=== PATIENT | male | born 1945 | race Caucasian/White ===

== ENCOUNTER → 2018-04-10 | Outpatient (CLI) | payer MEDICARE, BC ==
[2018-04-13 00:08] LABS: ACETYLCHOLINE RCPTOR BLOCK AB 24 % (0-25)
[2018-04-13 00:08] LABS: ACETYLCHOLINE RCPTOR BINDING A < 0.03 nmol/L (0.00-0.24)
== END ==
LOC: M LAB 09:12
DX: H53.2 Diplopia (principal)
CPT/HCPCS: 36415

== ENCOUNTER 2018-05-16 06:55 | Day surgery (SDC) | payer MEDICARE, BC ==
[2018-05-16] MEDS: PROPARACAINE 0.5% OPHTH SOL 15ML OS (07:00)
[2018-05-16] MEDS: OFLOXACIN 0.3 % (OCUFLOX) OPTH SOL 5ML OS (07:00)
[2018-05-16] MEDS: TROPICAMIDE 1% OPHTH SOLN 2ML OS (07:00)
[2018-05-16] MEDS: PHENYLEPHRINE 2.5% OPHTH SOL 2ML OS (07:00)
[2018-05-16] MEDS ORDERED: MIDAZOLAM INJ 2 MG/2 ML VIAL (J2250) As Ordered (07:32)
[2018-05-16] MEDS ORDERED: fentaNYL 100 MCG/2 ML INJECTION (J3010) As Ordered (07:33)
[2018-05-16] MEDS ORDERED: ONDANSETRON 4MG/2ML VIAL (J2405) As Ordered (07:33)
[2018-05-16] MEDS: BALANCED SALT IRRIGATION SOLUTION 500ML BAG (FOR OR EYE MACHINE) As Ordered (09:01)
[2018-05-16] MEDS: DUOVISC (0.50ML VISCOAT/0.55ML PROVISC) OPHTH KIT As Ordered (09:01)
[2018-05-16] MEDS: LIDOCAINE 0.75%/EPINEPHRINE 0.025% IN BSS 1ML SYR INTRACAMERAL (OR ONLY) As Ordered (09:01)
[2018-05-16] MEDS: POVIDONE-IODINE 5% OPHTH PREP SOL 30ML As Ordered (09:02)
== END 2018-05-16 10:10 | disposition home or self-care (01) ==
LOC: M SDC 06:55
DX: H25.12 Age-related nuclear cataract, left eye (principal); E03.9 Hypothyroidism, unspecified; I10 Essential (primary) hypertension; Z88.0 Allergy status to penicillin; Z88.1 Allergy status to other antibiotic agents; Z88.6 Allergy status to analgesic agent; Z79.899 Other long term (current) drug therapy
CPT/HCPCS: 66984

== ENCOUNTER 2018-05-23 13:11 | Day surgery (SDC) | payer MEDICARE, BC ==
[2018-05-23] MEDS: PROPARACAINE 0.5% OPHTH SOL 15ML OD (13:30)
[2018-05-23] MEDS: OFLOXACIN 0.3 % (OCUFLOX) OPTH SOL 5ML OD (13:31)
[2018-05-23] MEDS: PHENYLEPHRINE 2.5% OPHTH SOL 2ML OD (13:31)
[2018-05-23] MEDS: TROPICAMIDE 1% OPHTH SOLN 2ML OD (13:31)
[2018-05-23] MEDS ORDERED: fentaNYL 100 MCG/2 ML INJECTION (J3010) As Ordered (15:02)
[2018-05-23] MEDS: POVIDONE-IODINE 5% OPHTH PREP SOL 30ML As Ordered (15:21)
[2018-05-23] MEDS: LIDOCAINE 0.75%/EPINEPHRINE 0.025% IN BSS 1ML SYR INTRACAMERAL (OR ONLY) As Ordered (15:22)
[2018-05-23] MEDS: BALANCED SALT IRRIGATION SOLUTION 500ML BAG (FOR OR EYE MACHINE) As Ordered (15:22)
[2018-05-23] MEDS: DUOVISC (0.50ML VISCOAT/0.55ML PROVISC) OPHTH KIT As Ordered (15:22)
[2018-05-23] MEDS: CEFUROXIME 1MG/0.1ML INTRACAMERAL INJ As Ordered (15:23)
[2018-05-23] MEDS ORDERED: MIDAZOLAM INJ 2 MG/2 ML VIAL (J2250) As Ordered (15:37)
== END 2018-05-23 16:15 | disposition home or self-care (01) ==
LOC: M SDC 13:11
DX: H25.11 Age-related nuclear cataract, right eye (principal); I48.91 Unspecified atrial fibrillation; I10 Essential (primary) hypertension; E03.9 Hypothyroidism, unspecified; Z88.0 Allergy status to penicillin; Z88.8 Allergy status to other drugs, medicaments and biological substances; Z79.899 Other long term (current) drug therapy
CPT/HCPCS: 66984

== ENCOUNTER → 2020-05-05 | Outpatient (REF) | payer MEDICARE, BC ==
[~2020-05-05] MED LIST: AMLO1TAB24 PO; ATEN25TA PO; ATEN50TA2 PO; SYNT150T PO
[2020-05-05 20:28] LABS: FREE T4 1.15 NG/DL (0.76-1.46); THYROID STIMULATING HORMONE 3.99 uIU/ML (0.358-3.740)
== END ==
LOC: M LABDRAWC 15:58
PROVIDERS: ATTEND Family Medicine
DX: E03.8 Other specified hypothyroidism (principal)
CPT/HCPCS: 36415; 84439; 84443; G0463

== ENCOUNTER → 2021-05-25 | Outpatient (REF) | payer MEDICARE, BC | LOC: M SFHCCLAY 14:04 | PROVIDERS: ATTEND Family Medicine | DX: R23.9 Unspecified skin changes (principal) | CPT/HCPCS: 11102; 88305; G0463 ==

== ENCOUNTER → 2022-03-09 | Outpatient (REF) | payer MEDICARE, BC ==
[2022-03-09 15:40] LABS: HEMATOCRIT 47.2 % (42.0-52.0); HEMOGLOBIN 16.4 g/dl (13.5-17.5); MEAN CORPUSCULAR HEMOGLOBIN 34.1 pg (27.0-33.0); MEAN CORPUSCULAR HGB CONC 34.7 g/dl (32.0-36.5); MEAN CORPUSCULAR VOLUME 98.1 fl (80.0-96.0); PLATELET COUNT, AUTOMATED 225 10^3/uL (150-450); RED BLOOD COUNT 4.81 10^6/uL (4.30-6.10)
[2022-03-09 16:09] LABS: FERRITIN 472 NG/ML (26-388); IRON (FE) 118 UG/DL (65-175)
== END ==
LOC: M SFHCCLAY 10:16
PROVIDERS: ATTEND Family Medicine
DX: E83.119 Hemochromatosis, unspecified (principal)

== ENCOUNTER → 2023-01-25 | Outpatient (CLI) | payer MEDICARE, BC ==
[~2023-01-25] MED LIST changes: +ELIQ5TAB; +METO100T5; +METO200T28; +SYNT100T; +SYNT125T
== END ==
LOC: M CLY 11:05
PROVIDERS: ATTEND Nurse Practitioner Family
DX: M17.12 Unilateral primary osteoarthritis, left knee (principal); M25.462 Effusion, left knee

== ENCOUNTER → 2023-03-28 | Outpatient (REF) | payer MEDICARE, BC ==
[~2023-03-28] MED LIST changes: +CVS2500C PO; +VITAD400CA FT
[2023-03-28 18:38] LABS: FREE T4 1.05 NG/DL (0.89-1.76)
[2023-03-28 18:39] LABS: BLOOD UREA NITROGEN 16 MG/DL (9-23); CALCIUM LEVEL 9.2 MG/DL (8.3-10.6); CARBON DIOXIDE LEVEL 30 MMOL/L (20-31); CHLORIDE LEVEL 102 MMOL/L (98-107); CREATININE FOR GFR 0.88 MG/DL (0.70-1.30); GLOMERULAR FILTRATION RATE > 60.0 (>42); GLUCOSE, FASTING 106 MG/DL (74-106); POTASSIUM SERUM 4.2 MMOL/L (3.5-5.1); SODIUM LEVEL 137 MMOL/L (136-145); THYROID STIMULATING HORMONE 3.537 uIU/ML (0.55-4.78)
[2023-03-28 18:41] LABS: VITAMIN B12 LEVEL 986 PG/ML (211-911)
== END ==
LOC: M SFHCCLAY 14:07
PROVIDERS: ATTEND Nurse Practitioner Family
DX: E03.9 Hypothyroidism, unspecified (principal); E53.8 Deficiency of other specified B group vitamins

== ENCOUNTER → 2024-03-04 | Outpatient (REF) | payer MEDICARE, BC ==
[~2024-03-04] MED LIST changes: +METO200T15; -METO200T28
[2024-03-04 18:46] LABS: BASO # 0.1 10^3/uL (0.0-0.2); BASO % 0.7 % (0.0-1.0); EOS # 0.1 10^3/uL (0.0-0.5); EOS % 1.3 % (0.0-3.0); HEMATOCRIT 46.8 % (42.0-52.0); HEMOGLOBIN 16.5 g/dl (13.5-17.5); LYMPH # 1.5 10^3/uL (1.5-5.0); LYMPH % 21.4 % (24.0-44.0); MEAN CORPUSCULAR HEMOGLOBIN 33.7 pg (27.0-33.0); MEAN CORPUSCULAR HGB CONC 35.3 g/dl (32.0-36.5); MEAN CORPUSCULAR VOLUME 95.7 fl (80.0-96.0); MONO # 0.8 10^3/uL (0.0-0.8); MONO % 10.9 % (2.0-8.0); NEUTROPHILS # 4.5 10^3/uL (1.5-8.5); NEUTROPHILS % 65.4 % (36.0-66.0); PLATELET COUNT, AUTOMATED 198 10^3/uL (150-450); RED BLOOD COUNT 4.89 10^6/uL (4.30-6.10); WHITE BLOOD COUNT 6.9 10^3/uL (4.0-10.0)
[2024-03-04 19:12] LABS: ALBUMIN 4.1 G/DL (3.2-5.2); ALKALINE PHOSPHATASE 83 U/L (46-116); ALT/SGPT 14 U/L (7.0-40); AST/SGOT 17 U/L (<34); BLOOD UREA NITROGEN 13 MG/DL (9-23); CALCIUM LEVEL 9.9 MG/DL (8.3-10.6); CARBON DIOXIDE LEVEL 27 MMOL/L (20-31); CHLORIDE LEVEL 103 MMOL/L (98-107); CHOLESTEROL LEVEL 159 MG/DL (<200); CREATININE FOR GFR 0.87 MG/DL (0.70-1.30); GLOMERULAR FILTRATION RATE > 60.0 (>42); GLUCOSE, FASTING 108 MG/DL (74-106); HDL CHOLESTEROL 33.8 MG/DL (>40); LDL CHOLESTEROL 82.8 MG/DL (<100); NON-HDL-C 125.2 MG/DL; POTASSIUM SERUM 3.9 MMOL/L (3.5-5.1); SODIUM LEVEL 137 MMOL/L (136-145); TOTAL PROTEIN 7.8 G/DL (5.7-8.2); TRIGLYCERIDES LEVEL 212 MG/DL (<150)
[2024-03-04 19:15] LABS: THYROID STIMULATING HORMONE 0.109 uIU/ML (0.55-4.78)
[2024-03-04 19:17] LABS: FREE T4 1.67 NG/DL (0.89-1.76); VITAMIN B12 LEVEL 1623 PG/ML (211-911)
== END ==
LOC: M SFHCCLAY 15:25
PROVIDERS: ATTEND Nurse Practitioner Family
DX: Z00.00 Encounter for general adult medical examination without abnormal findings (principal); E03.9 Hypothyroidism, unspecified; I48.91 Unspecified atrial fibrillation; E53.8 Deficiency of other specified B group vitamins; I11.9 Hypertensive heart disease without heart failure

== ENCOUNTER → 2024-03-04 | Outpatient (CLI) | payer MEDICARE, BC | LOC: M CLY 15:41 | PROVIDERS: ATTEND Nurse Practitioner Family | DX: M17.11 Unilateral primary osteoarthritis, right knee (principal) ==

== ENCOUNTER → 2024-03-13 | Outpatient (CLI) | payer MEDICARE, BC | LOC: M PLAIMG 10:36 | PROVIDERS: ATTEND Nurse Practitioner Family | DX: R26.89 Other abnormalities of gait and mobility (principal); G31.89 Other specified degenerative diseases of nervous system; I67.82 Cerebral ischemia; R90.82 White matter disease, unspecified ==

== ENCOUNTER → 2024-04-22 | Outpatient (REF) | payer MEDICARE, BC | LOC: M LABDRAWC 16:00 | PROVIDERS: ATTEND Psychiatry & Neurology Neurology | DX: E53.8 Deficiency of other specified B group vitamins (principal) ==